=== PATIENT | female | born 1990 | race Caucasian/White ===

== ENCOUNTER 2020-07-08 17:47 | Emergency (ER) | payer BC ==
[~2020-07-08] VITALS: Ht 172.7 cm; Wt 61.4 kg
[~2020-07-08 17:47] MED LIST: LIDOcaine 1% W/epiNEPHrine 1:200,000 10ml vial ONE; NO HOME MEDS
[2020-07-08 18:03] VITALS: BP 142/97
[2020-07-08] MEDS ORDERED: bacitracin 15gm ointment TP ONE (18:45)
[2020-07-08] MEDS ORDERED: TETanus/Pertussis (Acell)/Diphther VAC/PF (Tdap-Adult) 0.5ml syringe IMVAC ONE (18:45)
== END 2020-07-08 19:18 | disposition home or self-care (01) ==
LOC: ER 17:48
DX: S00.05XA Superficial foreign body of scalp, initial encounter (principal); X58.XXXA Exposure to other specified factors, initial encounter; Y93.89 Activity, other specified; Y92.89 Other specified places as the place of occurrence of the external cause; Y99.8 Other external cause status
CPT/HCPCS: 90471; 90715; 99284